=== PATIENT | female | born 1950 | race Caucasian/White ===

== ENCOUNTER → 2023-05-24 15:03 | Outpatient (REF) | payer MEDICARE, SELFPAY | LOC: RAD 15:03 | PROVIDERS: ATTENDING PHYSICIAN Family Medicine | DX: M54.50 Low back pain, unspecified (principal); M54.6 Pain in thoracic spine | CPT/HCPCS: 72072; 72110 ==

== ENCOUNTER 2023-09-08 23:59 | Emergency (ER) | payer MEDICARE, SELFPAY ==
[2023-09-09] VITALS: BP 113/76
--- NOTE | 2023-09-09 01:27 | ED.GENMED ---
History of Present Illness
General
Chief Complaint: Musculo-Skeletal Complaint
Source: patient
Exam Limitations: none
Time Seen by Provider: 09/09/23 01:16
Travel History
Have you had any contact with someone who has COVID-19?: No
Do you have any symptoms of coronavirus? Fever > 100 degrees, chills, cough, shortness of breath, sore throat, loss of taste or smell, muscle aches, or headache?: No
History of Present Illness
History of Present Illness:
See MDM
Past History
Past History
ED Past Medical History: Arrthythmia (Paroxysmal Atrial fibrillation) and Other (PMR)
ED Past Surgical History: Gynecological (Hysterectomy) and Orthopedic
Social History
Tobacco: Former smoker
Living: with family
Employment: Employed
Phy Exam
Physical Exam
Physical Exam:
See MDM
Course
Orders/Labs/Results
Orders:
Orders
09/09/23 00:05
CR Wrist - Right Min 3 Views Urgent
Comment:
Reason For Exam: fall, injury
Vital Signs
Initial and Last Documented VS:
Initial Vital Signs
Temp Pulse Resp BP Pulse Ox
97.7 F 77 18 113/76 100
09/09/23 00:00 09/09/23 00:00 09/09/23 00:00 09/09/23 00:00 09/09/23 00:00
Last Documented Vital Signs
Temp Pulse Resp BP Pulse Ox
97.7 F 77 18 113/76 100
09/09/23 00:00 09/09/23 00:00 09/09/23 00:00 09/09/23 00:00 09/09/23 00:00
Procedures
Joint/Fracture Reduction
Right Distal Radial Wrist:
Indication for procedure:: Distal Right radius fracture
Procedure completed by: Cristino Pizano DO
Consent form signed: No
Joint reduced: without anesthesia
Anesthesia/sedation: 1% Lidocaine w/ Epi
Injury was: closed
Further treatement: needs further treatment
Post reduction exam: stable
Capillary Refill: normal
Normal distal neurovascular exam?: Yes
Peripheral Pulses: radial (right): 2+
Additional information:
Verbal consent obtained
MDM/Problems Addressed
Differential Diagnosis Includes:
HPI and MDM Narrative:
72-year-old female presenting with a right wrist injury. Patient tripped and fell just prior to arrival. She does admit that she had a few cocktails and had 2 Gummies. She complains of right wrist pain. She denies numbness or tingling. She is
right-hand dominant. She denies head injury
X-ray consistent with distal radius comminuted intra-articular fracture. I gave the patient the option of sedation and reduction versus hematoma block and reduction. Patient opted for hematoma block
Physical exam
General: Well appearing and non-toxic
HEENT: protecting airway
Neck: appears supple
CV: No evidence of cyanosis
Resp: No accessory muscle use
Abd: Non-distended
Extremities: Deformity and tenderness to distal right radius. Extremity otherwise neurovascularly intact
Neuro: alert
Psych: Normal affect
Skin: Intact
Problems Addressed including Acute and Chronic Conditions affecting care:
1. Right distal radius intra-articular comminuted fracture
Acuity: acute
Prognosis: unstable
Details: Hematoma block performed and patient tolerated reduction at bedside. Will place in [facility] and have her follow-up with orthopedic
Differential Diagnosis (but not limited to): Wrist fracture, contusion
Testing considered: Hand x-ray
Drug therapy (if applicable): OTC meds, please see d/c instruction regarding Rx drugs
Amount and/or Complexity of Data Reviewed
Clinical info obtained from: Patient
External data reviewed: N/A
Labs I independently reviewed (but not limited to): N/A
Radiology: x-ray independently reviewed: Wrist x-ray consistent with distal radius comminuted articular fracture
Pulse Ox: not hypoxic
EKG independently reviewed: N/A
Woodworker: N/A
Critical Care: N/A
Risk of Complication:
Social Determinants of health: Good social support
Discussed with other providers: N/A
Escalation of Care includes Admit/Obs: After being observed in the Emergency Department, pt stable for discharge.
Occasional wrong word or 'sound a like' substitutions may have occurred due to the inherent limitations of voice recognition software. Read the chart carefully and recognize, using context, where substitutions have occurred.
*Critical Care Note
Total Time (30-74mins, 75-104mins- exclusive of procedures): Not Applicable
ED Attending Note
-
Portions of this chart may have been created with voice recognition software.� Occasional wrong word or��sound alike� substitutions may have occurred due to the inherent limitations of voice recognition software.
Discharge Plan
Departure
Patient Disposition: Home (Routine Discharge)
Date of Disposition: 09/09/23
Time of Disposition: 01:36
Patient with high blood pressure during this ER visit?: No
Discharge Problem:
Distal radius fracture, right
Instructions: Wrist Fracture (DC)
Prescriptions:
New
oxycodone 5 mg tablet
5 mg PO Q8H PRN (Reason: Pain) Qty: 14 0RF
No Action
calcium carbonate-vitamin D3 1 EACH tablet
1 tab PO DAILY
diltiazem HCl 120 MG capsule,extended release 24hr
360 mg PO DAILY
Xarelto 20 MG tablet
20 mg PO DAILY
Hold Instructions: Resume on 04/30/22.
ascorbic acid (vitamin C) [Vitamin C] 1,000 MG tablet
1,000 mg PO DAILY
red yeast rice 600 MG tablet
1,200 mg PO DAILY
Hold Instructions: Resume on 05/04/22.
Life Extension
2 tablets PO DAILY
Hold Instructions: Resume on 05/04/22.
sertraline 50 mg Tablet
50 mg PO DAILY
lithium aspartate 5 mg Capsule
5 mg PO DAILY
cholecalciferol (vitamin D3) [Vitamin D3] 125 mcg (5,000 unit) Tablet
125 mcg PO DAILY
Hair, Skin and Nails (biotin) 10,000 mcg Tablet,Chewable
10,000 mcg PO DAILY
Hold Instructions: Resume on 05/04/22.
Cbd Gummie
1 gum PO DAILY
Curcumin
1 tab PO DAILY
Hold Instructions: Resume on 05/04/22.
Mitocondrial Energizer
3 tab PO DAILY
Hold Instructions: Resume on 05/04/22.
Mushroom
1 tab PO DAILY
Hold Instructions: Resume on 05/04/22.
Nt-2 Collogen
1 tab PO DAILY
Hold Instructions: Resume on 05/04/22.
sennosides [senna] 8.6 mg Tablet
17.2 mg PO BID Qty: 2 0RF
acetaminophen 325 mg Tablet
650 mg PO Q4HWA Qty: 2 0RF
magnesium hydroxide 400 mg/5 mL Suspension
30 ml PO DAILYPRN PRN (Reason: constipation) Qty: 15 0RF
docusate sodium 100 mg Capsule
100 mg PO BID Qty: 1 0RF
Xarelto 10 mg Tablet
10 mg PO QPM Qty: 2 0RF
Rx Instructions:
take tonight 04/28/22 and Sat pm 04/29/22-then resume prior dosing
famotidine 20 mg tablet
20 mg PO HS Qty: 30 0RF
oxycodone 5 mg tablet
5 - 10 mg PO Q6HPRN PRN (Reason: 1 tab moderate-2 tabs severe pain) Qty: 30 0RF
Rx Instructions:
Dx TKA
ongoing therapy
*POST-OP USE
Referrals:
Conor Turk MD [Active] -
Activity Restrictions/Additional Instructions:
Please call the orthopedist for first available appointment. Please return for worsening symptoms, worsening pain or any numbness or tingling.
Interventions
Interventions:
*Risk Screen - Suicide Last Done: 09/09/23 00:00
*General Assessment Last Done: 09/09/23 00:00
*Neglect/Abuse Screening Last Done: 09/09/23 00:00
Discharge Date and Time
Print Language: CYMRAES
[2023-09-09] MEDS: PERCOCET 5/325 1 TABLET PO (02:15)
--- NOTE | 2023-09-09 02:30 | EDRN ---
Splint performed, patient stating fingers feel a little numb and feels tight, fingers have good capillary refill, azael wrap is not too tight, did informed Dr. Pizano, he re-assures that with the medication injected into area is why it feels numb and
tight, patient had repeat xray performed and rechecked capillary refill on hands once she was back to make sure still had good refill which it did, showed patient how to check the capillary refill and informed her once the numbing medication where's
off if she has any concern at all or there isn't good refill or fingers are discolored to please come back in. Patient and understand instructions, patient leaves with sling on, understands importance of elevation of the wrist and follow up
with ortho.
== END 2023-09-09 03:17 | disposition home or self-care (01) ==
LOC: EMR 23:59
PROVIDERS: EMERGENCY PHYSICIAN Student in an Organized Health Care Education/Training Program; FAMILY PHYSICIAN Family Medicine
DX: S52.571A Other intraarticular fracture of lower end of right radius, initial encounter for closed fracture (principal); W19.XXXA Unspecified fall, initial encounter; I48.0 Paroxysmal atrial fibrillation; M35.3 Polymyalgia rheumatica; Z87.891 Personal history of nicotine dependence
CPT/HCPCS: 25605; 99284; 73100; 73110

== ENCOUNTER → 2023-09-11 11:29 | Outpatient (REF) | payer MEDICARE, SELFPAY ==
[2023-09-11 12:14] LABS: % Basophils 0.2 % (0-2); % Eosinophils 0.8 % (0-6); % Immature Granulocytes 0.5 % (0-0.5); % Lymphocytes 13.8 % (20.5-51.1); % Monocytes 8.5 % (1.7-9.3); % Neutrophils 76.2 % (42.2-75.2); Absolute Eosinophils 0.1 10^3/uL (0-0.7); Absolute Immature Granulocytes 0.1 10^3/uL (0-0.05); Absolute Lymphocytes 1.7 10^3/uL (1.2-3.4); Absolute Monocytes 1.1 10^3/uL (0.1-0.6); Absolute Neutrophils 9.5 10^3/uL (1.4-6.5); Hematocrit 39.6 % (37.0-47.0); Hemoglobin 13.7 g/dL (12.0-16.0); Mean Corp Hgb Conc. 34.6 g/dL (33.0-37.0); Mean Corpuscular Hgb 32.2 pg (27.0-31.0); Nucleated Red Blood Cells % 0 %; Platelet Count 213 10^3/uL (130-400); Red Blood Cell Count 4.26 10^6/uL (4.20-5.40); Red Cell Dist. Width 12.7 % (11.5-14.5); White Blood Cell Count 12.5 10^3/uL (4.8-10.8)
[2023-09-11 12:51] LABS: Blood Urea Nitrogen 20 mg/dl (7-17); Calcium 9.9 mg/dl (8.4-10.2); Carbon Dioxide 29 mmol/L (22-30); Chloride 98 mmol/L (98-107); Glucose 107 mg/dl (70-99); Potassium 4.2 mmol/L (3.5-5.1); Sodium 135 mmol/L (135-145); eGFR > 60.00
== END ==
LOC: REG 11:29
PROVIDERS: ATTENDING PHYSICIAN Orthopaedic Surgery; FAMILY PHYSICIAN Family Medicine
DX: Z01.818 Encounter for other preprocedural examination (principal)
CPT/HCPCS: 36415; 80048; 85025; 93005

== ENCOUNTER → 2024-02-08 12:40 | Outpatient (REF) | payer MEDICARE, SELFPAY | LOC: WDC 12:40 | PROVIDERS: ATTENDING PHYSICIAN Family Medicine | DX: Z12.31 Encounter for screening mammogram for malignant neoplasm of breast (principal) | CPT/HCPCS: 77063; 77067 ==

== ENCOUNTER → 2024-02-15 13:12 | Outpatient (REF) | payer MEDICARE, SELFPAY | LOC: RAD 13:12 | PROVIDERS: ATTENDING PHYSICIAN Family Medicine | DX: M85.89 Other specified disorders of bone density and structure, multiple sites (principal) | CPT/HCPCS: 77080 ==